=== PATIENT | female | born 1960 | race Two or more races ===

== ENCOUNTER 2017-11-13 17:46 | Inpatient (IN) | payer MEDICARE, OTHER ==
[~2017-11-13] VITALS: Ht 152.4 cm; Wt 56.7 kg
--- NOTE | 2017-11-13 17:47 | NUR ---
PT NOTED WITH DYSRHYTHMIA ON TELE MONITOR; EMT NOTIFIED FOR STAT EKG
--- NOTE | 2017-11-13 17:55 | NUR ---
PT PRESENTS TO ER C/O CP X1 DAY, MIDSTERNAL SHARP STABBING, SEVERE. NON-RADIATING NON-PROVOKED. RESP EVEN UNLABORED. SKIN WARM DRY. A/OX4. PLACED ON 2L VIA NC FOR SUPPORT. IN ER BED 09 ON MONITOR. ER MD AT BEDSIDE.
[2017-11-13] MEDS ORDERED: SODIUM BICARBONATE SYR 50 MEQ/50 ML DISP.SYRIN ONE (17:56)
[2017-11-13] MEDS ORDERED: DEXTROSE 50%-WATER 50 ML DISP.SYRIN ONE ×2 (17:56→23:29)
[2017-11-13] MEDS ORDERED: INSULIN REGULAR, HUMAN 100 UNIT/ML 10 ML VIAL ONE (17:56)
[2017-11-13] MEDS ORDERED: CALCIUM CHLORIDE 1,000 MG/10 ML DISP.SYRIN ONE (17:57)
[2017-11-13] MEDS ORDERED: DEXTROSE 50%-WATER 50 ML DISP.SYRIN IV ONE (18:00)
[2017-11-13] MEDS ORDERED: SODIUM BICARBONATE SYR 50 MEQ/50 ML DISP.SYRIN IV ONE (18:00)
[2017-11-13] MEDS ORDERED: CALCIUM CHLORIDE 1,000 MG/10 ML DISP.SYRIN IV ONE (18:00)
[2017-11-13] MEDS ORDERED: ALBUTEROL FS 2.5 MG/3 ML VIAL.NEB NEB ONE (18:00)
[2017-11-13] MEDS ORDERED: INSULIN REGULAR, HUMAN 100 UNIT/ML 10 ML VIAL IV ONE (18:00)
[2017-11-13] MEDS ORDERED: ALBUTEROL FS 2.5 MG/3 ML VIAL.NEB ONE (18:03)
[2017-11-13 18:17] LABS: BASOPHILS % (AUTO) 0.7 % (0.0-2.0); EOSINOPHILS % (AUTO) 0.1 % (0.0-6.0); HEMATOCRIT 25 % (33-45); HEMOGLOBIN 8.3 g/dL (11.5-14.8); LYMPHOCYTES # (AUTO) 1.4 /CMM (0.8-4.8); LYMPHOCYTES % (AUTO) 30.3 % (20.0-44.0); MEAN CORPUSCULAR HEMOGLOBIN 33 PG (26.0-33.0); MEAN CORPUSCULAR HGB CONC 33 g/dl (31.0-36.0); MEAN CORPUSCULAR VOLUME 100 fL (82-100); MONOCYTES # (AUTO) 0.1 /CMM (0.1-1.30); MONOCYTES % (AUTO) 1.8 % (2.0-12.0); NEUTROPHILS # (AUTO) 3.2 /CMM (1.8-8.9); NEUTROPHILS % (AUTO) 67.1 % (43.0-81.0); PLATELET COUNT (AUTO) 110 /CMM (150-450); RDW COEFFICIENT OF VARIATION 13.3 (11.5-15.0); RED BLOOD CELL COUNT(AUTO) 2.49 MIL/uL (4.0-5.2); WHITE BLOOD COUNT (AUTO) 4.8 K/uL (4.3-11.0)
[2017-11-13 18:31] LABS: INR 1.03 (0.87-1.13); PROTHROMBIN TIME 10.7 SECS (9.5-12.7)
[2017-11-13 18:33] LABS: ALBUMIN 2.7 g/dL (3.4-5.0); BILIRUBIN,DIRECT 0.1 mg/dL (0.0-0.2); BILIRUBIN,TOTAL 0.5 mg/dL (0.2-1.0); TOTAL PROTEIN, SERUM 6.4 g/dL (6.4-8.2)
[2017-11-13 18:35] LABS: TROPONIN I 0.075 ng/mL (0.00-0.056)
[2017-11-13 18:38] LABS: CREATININE 8.7 mg/dL (0.6-1.3); POTASSIUM 7.7 mmol/L (3.5-5.1)
--- NOTE | 2017-11-13 18:46 | NUR ---
DR.SORA SELAM GONSALES
--- NOTE | 2017-11-13 18:46 | NUR ---
CALLED NURSING SUP. FOR ICU BED
--- NOTE | 2017-11-13 19:09 | NUR ---
DR.RUTHERFORD JEFERSON GRADES 1 THROUGH 5 TEACHER
[2017-11-13] MEDS ORDERED: CALC667C6 PO (19:24)
[2017-11-13] MEDS ORDERED: CARV25TA2 PO (19:24)
[2017-11-13] MEDS ORDERED: OMEP20TA5 PO (19:24)
[2017-11-13] MEDS ORDERED: VIT1TABL46 PO (19:24)
[2017-11-13] MEDS ORDERED: HYDR-548 PO (19:24)
[2017-11-13] MEDS ORDERED: FOLI1TAB16 PO (19:24)
[2017-11-13] MEDS ORDERED: ASPI-1169 PO (19:24)
[2017-11-13] MEDS ORDERED: HYDR200T PO (19:24)
[2017-11-13] MEDS ORDERED: SIMV20TA6 PO (19:24)
[2017-11-13] MEDS ORDERED: PRED5TAB PO (19:24)
[2017-11-13] MEDS ORDERED: DULO60CA45 PO (19:24)
--- NOTE | 2017-11-13 20:08 | NUR ---
DIALYSIS NURSE AT BEDSIDE
[2017-11-13] MEDS ORDERED: *INSULIN REGULAR(HUMULIN R)HUM 100 UNIT/ML VIAL SQ PRN (20:30)
[2017-11-13] MEDS ORDERED: DEXTROSE 50%-WATER 50 ML DISP.SYRIN IV PRN (20:30)
[2017-11-13] MEDS ORDERED: MAGNESIUM HYDROXIDE 30 ML UDC PO PRN (20:30)
[2017-11-13] MEDS ORDERED: ONDANSETRON HCL/PF 4 MG/2 ML VIAL IVP PRN (20:30)
[2017-11-13] MEDS ORDERED: INSULIN REGULAR, HUMAN 100 UNIT/ML 3 ML VIAL SQ PRN (20:30)
[2017-11-13] MEDS ORDERED: Z GUARD REMEDY 2 OZ OINT TP PRN (20:30)
[2017-11-13] MEDS ORDERED: ACETAMINOPHEN 325 MG TABLET PO PRN (20:30)
--- NOTE | 2017-11-13 21:22 | NUR ---
DIALYSIS ONGOING. ALL NEEDS ATTENDED TO.
--- NOTE | 2017-11-13 22:03 | NUR ---
LAB NOTIFIED FOR POTASSIUM REDRAW
--- NOTE | 2017-11-13 22:27 | NUR ---
REPORT GIVEN TO BONNIE RN FOR ADMISSION. ENDORSED TO LENA, MEDIA BUYER FOR [facility] UNTIL PT IS TRANSFERRED TO FLOOR.
[2017-11-13 22:41] LABS: CREATININE 5.5 mg/dL (0.6-1.3); POTASSIUM 4.5 mmol/L (3.5-5.1)
[2017-11-13 23:05] VITALS: BP 158/76
--- NOTE | 2017-11-13 23:05 | NUR ---
PLEAT PATTERNMAKER INITIAL NOTES RECEIVED REPORT FROM ER NURSE ODILON. PER REPORT PATIENT S/P HD IN ER WITH 2L OUT. RECEIVED PATIENT VIA GURNEY AWAKE AND A/OX3, DAUGHTER AT BEDSIDE. PATIENT DENIES PAIN OR DISCOMFORT AT THIS TIME. DENIES CHEST PAIN. DENIES DIZZINESS, DENIES N/V. DENIES SOB ON 2LPMO2 VIA NC. ON TELE MONITOR SR WITH BBB 62. SKIN WARM AND DRY TO TOUCH. BLOOD SUGAR CHECKED, 48, PATIENT ASYMPTOMATIC. PATIENTS STATES SHE'S HUNGRY. WILL RECHECK BLOOD SUGAR AGAIN. WITH [place] AV FISTULA, PRESSURE DRESSING IN PLACE, NO BLEEDING NOTED. PATIENT AMBULATORY WITH MINIMAL ASSISTANCE, AMBULATES STEADY. EDUCATED ELEMENTARY ASSISTANT TEACHER LIGHT SYSTEM, PATIENT VERBALIZED UNDERSTANDING. SIDE RAILS UP AND LOCKED. BED KEPT AT LOWEST POSITION. CALL LIGHT KEPT WITHIN EASY REACH. WILL CONTINUE TO MONITOR.
--- NOTE | 2017-11-13 23:07 | NUR ---
PT TRANSFERED TO [facility] VIA AFIA VIZCAINO PROTOCOL .
--- NOTE | 2017-11-13 23:49 | NUR ---
DRYWALLER NOTES BLOOD SUGAR RECHECKED, PATIENT ATE, 116. PER PATIENT SHE HAS NO HISTORY OF DM. WILL CONTINUE TO MONITOR.
[2017-11-14] MEDS ORDERED: SIMVASTATIN 20 MG TABLET ONE (00:05)
[2017-11-14] MEDS: BLOOD SUGAR DIAGNOSTIC 1 EACH STRIP VI SCH ×5 (00:11→22:09)
[2017-11-14] MEDS: SIMVASTATIN 20 MG TABLET PO SCH ×2 (00:11→22:09)
[2017-11-14 04:00] VITALS: BP 156/72
--- NOTE | 2017-11-14 07:00 | NUR ---
SUPERINTENDENT CONSTRUCTION INITIAL NOTES RECEIVED PT AWAKE AND A/OX3, PATIENT DENIES PAIN OR DISCOMFORT AT THIS TIME. DENIES CHEST PAIN. DENIES DIZZINESS, DENIES N/V. DENIES SOB ON 2LPMO2 VIA NC. ON TELE MONITOR SR WITH BBB 62. SKIN WARM AND DRY TO TOUCH.PT HAS [place] AV FISTULA, PRESSURE DRESSING IN PLACE, NO BLEEDING NOTED. PATIENT AMBULATORY WITH MINIMAL ASSISTANCE, AMBULATES STEADY. CALL LIGHT WITHIN REACH, PATIENT VERBALIZED UNDERSTANDING. SIDE RAILS UP AND LOCKED. BED KEPT AT LOWEST POSITION. CALL LIGHT KEPT WITHIN EASY REACH. RN WILL CONTINUE TO MONITOR.
[2017-11-14 07:57] LABS: BASOPHILS % (AUTO) 0.6 % (0.0-2.0); HEMATOCRIT 26 % (33-45); LYMPHOCYTES # (AUTO) 1.6 /CMM (0.8-4.8); LYMPHOCYTES % (AUTO) 37.6 % (20.0-44.0); MEAN CORPUSCULAR HEMOGLOBIN 34 PG (26.0-33.0); MEAN CORPUSCULAR HGB CONC 34 g/dl (31.0-36.0); MEAN CORPUSCULAR VOLUME 101 fL (82-100); MONOCYTES # (AUTO) 0.7 /CMM (0.1-1.30); NEUTROPHILS # (AUTO) 1.9 /CMM (1.8-8.9); NEUTROPHILS % (AUTO) 44.8 % (43.0-81.0); PLATELET COUNT (AUTO) 119 /CMM (150-450); RDW COEFFICIENT OF VARIATION 14.4 (11.5-15.0); RED BLOOD CELL COUNT(AUTO) 2.61 MIL/uL (4.0-5.2); WHITE BLOOD COUNT (AUTO) 4.3 K/uL (4.3-11.0)
[2017-11-14 08:00] VITALS: BP_SYST 123; BP_SYST 173; BP_DIAS 82
--- NOTE | 2017-11-14 08:17 | NUR ---
ORTHO RN CLOSING NOTES NO SIGNIFICANT CHANGES OVERNIGHT. NO C/O PAIN OR DISCOMFORT. NO C/O SOB, ON 2LPMO2 VIA NC. PATIENT IS A/OX4, ABLE TO MAKE NEEDS KNOWN. ALL NEEDS ANTICIPATED AND MET. PATIENT RESTING COMFORTABLY. SIDE RAILS UP AND LOCKED. BED KEPT AT LOWEST POSITION. CALL LIGHT KEPT WITHIN EASY REACH. CONTINUITY OF CARE ENDORSED TO AM NURSE.
[2017-11-14 08:32] LABS: CALCIUM, SERUM 9.2 mg/dL (8.5-10.1); CREATININE 6.6 mg/dL (0.6-1.3); MAGNESIUM 2.3 mg/dL (1.8-2.4); PHOSPHORUS 5.8 mg/dL (2.5-4.9); POTASSIUM 4.5 mmol/L (3.5-5.1)
[2017-11-14] MEDS: CARVEDILOL 12.5 MG TABLET PO SCH ×2 (09:00→22:09)
[2017-11-14 09:11] LABS: LYMPHOCYTES % (MANUAL) 42 % (16-48); MONOCYTES % (MANUAL) 10 % (0-11.0); NEUTROPHILS % (MANUAL) 48 (42-76)
[2017-11-14] MEDS: PANTOPRAZOLE 40 MG TABLET.DR PO SCH ×2 (09:34→22:08)
[2017-11-14] MEDS: FOLIC ACID 1 MG TABLET PO SCH (09:34)
[2017-11-14] MEDS: HYDROXYCHLOROQUINE 200 MG TABLET PO SCH (09:34)
[2017-11-14] MEDS: ASPIRIN 81 MG TAB.CHEW PO SCH (09:34)
[2017-11-14] MEDS: VIT B CMPLX 3/FA/VIT C/BIOTIN 1 TAB TABLET PO SCH (09:34)
[2017-11-14] MEDS: DULOXETINE HCL 30 MG CAPSULE.DR PO SCH (09:34)
[2017-11-14] MEDS: CALCIUM ACETATE 667 MG TABLET PO SCH ×3 (09:36→16:51)
[2017-11-14] MEDS: predniSONE 5 MG TABLET PO SCH (09:36)
[2017-11-14 12:00] VITALS: BP_SYST 101; BP_SYST 133; BP_DIAS 49; BP_DIAS 69
[2017-11-14] MEDS: MAG HYDROX/AL HYDROX/SIMETH 30 ML UDC PO PRN (12:34)
[2017-11-14] MEDS: HYDROCODONE/APAP 5/325MG 1 EACH TABLET PO PRN ×2 (12:39→16:53)
[2017-11-14 16:00] VITALS: BP_SYST 135; BP_SYST 157; BP_DIAS 52; BP_DIAS 62
--- NOTE | 2017-11-14 19:05 | NUR ---
DIRECTOR OF FIRST IMPRESSIONS OPENING NOTES RECEIVED REPORT FROM ARIANE SEWELL. PATIENT A/A/O X4, ABLE TO MAKE NEEDS KNOWN. BREATHING EVEN & UNLABORED, ON ROOM AIR. DENIES SOB OR DIFFICULTY BREATHING. ON TELE SINUS RHYTHM IN THE 70S. RIGHT WRIST IV #22 INTACT & PATENT W/ DRESSING CDI, SALINE LOCKED. LEFT UPPER ARM AV SHUNT W/ DRESSING CDI. NO COMPLICATIONS NOTED. DENIES ANY PAIN OR DISCOMFORT @ THIS TIME. SAFETY MEASURES IN PLACE W/ SIDE RAILS UP, BED LOCKED & IN LOWEST POSITION & CALL LIGHT WITHIN REACH. FAMILY @ BEDSIDE. WILL CONTINUE TO MONITOR.
--- NOTE | 2017-11-14 19:05 | NUR ---
CHIEF STRATEGY OFFICER CLOSING NOTE NO C/O PAIN OR DISCOMFORT. NO C/O SOB, ON 2LPMO2 VIA NC. PATIENT IS A/OX4, ABLE TO MAKE NEEDS KNOWN. ALL NEEDS ANTICIPATED AND MET. PATIENT RESTING COMFORTABLY DAUGHTER AT BEDSIDE. SIDE RAILS UP AND LOCKED. BED KEPT AT LOWEST POSITION. CALL LIGHT KEPT WITHIN EASY REACH. CONTINUITY OF CARE ENDORSED TO PM NURSE.
--- NOTE | 2017-11-14 19:54 | NUR ---
RN NOTE PATIENT STATES SHE IS NOT DIABETIC AND DOESN'T NEED INSULIN OR CBG CHECKS TONIGHT CBG TAKEN AFTER MEAL
[2017-11-14 20:00] VITALS: BP 125/57
[2017-11-15] VITALS: BP 143/67
[2017-11-15 04:00] VITALS: BP 115/52
--- NOTE | 2017-11-15 07:05 | NUR ---
RN INITIAL NOTE PATIENT RECEIVED IN BED RESTING COMFORTABLY. PATIENT IS EASILY AROUSED, ALERT AND ORIENTED. NO S/S OF PAIN OR DISCOMFORT. DENIES PAIN AT THIS TIME. SINUS RHYTHM ON TELE MONITOR. RESPIRATIONS ARE EVEN AND UNLABORED. NO S/S OF RESPIRATORY DISTRESS OR SOB. SATING WELL ON 2L NASAL CANULA. SKIN IS WARM AND DRY TO TOUCH. IV SITE FLUSHED, AND PATENT. SAFETY PRECAUTIONS IMPLEMENTED. BED IN LOCKED, LOW POSITION WITH TWO SIDE RAILS UP. CALL LIGHT AND BELONGINGS WITHIN EASY REACH. WILL CONTINUE TO MONITOR.
[2017-11-15 07:40] LABS: BILIRUBIN,TOTAL 0.4 mg/dL (0.2-1.0); CALCIUM, SERUM 9.4 mg/dL (8.5-10.1); CREATININE 6.3 mg/dL (0.6-1.3); MAGNESIUM 2.3 mg/dL (1.8-2.4); PHOSPHORUS 4.4 mg/dL (2.5-4.9); POTASSIUM 5.1 mmol/L (3.5-5.1); TOTAL PROTEIN, SERUM 7.4 g/dL (6.4-8.2)
[2017-11-15 07:50] LABS: BASOPHILS # (AUTO) 0.1 /CMM (0.0-0.2); BASOPHILS % (AUTO) 1.1 % (0.0-2.0); EOSINOPHILS % (AUTO) 0.7 % (0.0-6.0); HEMATOCRIT 31 % (33-45); HEMOGLOBIN 10.6 g/dL (11.5-14.8); LYMPHOCYTES # (AUTO) 1.8 /CMM (0.8-4.8); LYMPHOCYTES % (AUTO) 37.8 % (20.0-44.0); MEAN CORPUSCULAR HEMOGLOBIN 34 PG (26.0-33.0); MEAN CORPUSCULAR HGB CONC 34 g/dl (31.0-36.0); MEAN CORPUSCULAR VOLUME 100 fL (82-100); MONOCYTES # (AUTO) 0.8 /CMM (0.1-1.30); MONOCYTES % (AUTO) 17.4 % (2.0-12.0); NEUTROPHILS # (AUTO) 2.1 /CMM (1.8-8.9); PLATELET COUNT (AUTO) 122 /CMM (150-450); RDW COEFFICIENT OF VARIATION 13.3 (11.5-15.0); RED BLOOD CELL COUNT(AUTO) 3.14 MIL/uL (4.0-5.2); WHITE BLOOD COUNT (AUTO) 4.8 K/uL (4.3-11.0)
[2017-11-15 08:00] VITALS: BP 128/60
[2017-11-15] MEDS: CARVEDILOL 12.5 MG TABLET PO SCH (08:37)
[2017-11-15] MEDS: PANTOPRAZOLE 40 MG TABLET.DR PO SCH (08:37)
[2017-11-15] MEDS: ASPIRIN 81 MG TAB.CHEW PO SCH (08:37)
[2017-11-15] MEDS: VIT B CMPLX 3/FA/VIT C/BIOTIN 1 TAB TABLET PO SCH (08:37)
[2017-11-15] MEDS: CALCIUM ACETATE 667 MG TABLET PO SCH ×2 (08:37→13:00)
[2017-11-15] MEDS: HYDROXYCHLOROQUINE 200 MG TABLET PO SCH (08:37)
[2017-11-15] MEDS: DULOXETINE HCL 30 MG CAPSULE.DR PO SCH (08:37)
[2017-11-15] MEDS: predniSONE 5 MG TABLET PO SCH (08:37)
[2017-11-15] MEDS: FOLIC ACID 1 MG TABLET PO SCH (08:37)
[2017-11-15] MEDS: BLOOD SUGAR DIAGNOSTIC 1 EACH STRIP VI SCH ×2 (08:38→11:57)
[2017-11-15] MEDS: HYDROCODONE/APAP 5/325MG 1 EACH TABLET PO PRN ×2 (08:54→11:57)
[2017-11-15] MEDS: MAG HYDROX/AL HYDROX/SIMETH 30 ML UDC PO PRN (11:25)
[2017-11-15 12:00] VITALS: BP 124/64
--- NOTE | 2017-11-15 14:30 | NUR ---
RN CLOSING NOTE. PATIENT DISCHARGED HOME. PAPERWORK COMPLETED AND SIGNED. IV SITE AND ID BAND REMOVED. PATIENT LEFT VIA PRIVATE CAR DRIVEN BY HER DAUGHTER.
== END 2017-11-15 14:20 | disposition home or self-care (01) | DRG 682 ==
LOC: ER 17:50 → TELE-TD 22:04 → TELE1 23:38
PROVIDERS: ADMIT Internal Medicine; ATTEND Internal Medicine
PROC: 5A1D70Z Performance of Urinary Filtration, Intermittent, Less than 6 Hours Per Day (ICD-10-PCS; principal; 2017-11-13)
DX: I12.0 Hypertensive chronic kidney disease with stage 5 chronic kidney disease or end stage renal disease (principal); I21.A1 Myocardial infarction type 2; E11.22 Type 2 diabetes mellitus with diabetic chronic kidney disease; D69.6 Thrombocytopenia, unspecified; M32.9 Systemic lupus erythematosus, unspecified; N18.6 End stage renal disease; E87.5 Hyperkalemia; E78.5 Hyperlipidemia, unspecified; F32.9 Major depressive disorder, single episode, unspecified; F41.9 Anxiety disorder, unspecified; I25.10 Atherosclerotic heart disease of native coronary artery without angina pectoris; K21.9 Gastro-esophageal reflux disease without esophagitis; Z99.2 Dependence on renal dialysis; R00.1 Bradycardia, unspecified; D63.8 Anemia in other chronic diseases classified elsewhere; I44.30 Unspecified atrioventricular block
CPT/HCPCS: 36415; 71045-TC; 80048-TC; 80053-TC; 80076-TC; 82962-TC; 83735-TC; 84100-TC; 84484-TC; 85025-TC; 85730-TC; 87040-TC; 87081-TC; 90935-TC; A4606; J1815; J2405; J3490; J7512; Z7610